=== PATIENT | male | born 1985 | race Caucasian/White ===

== ENCOUNTER 2021-03-12 17:23 | Emergency (ER) | payer OTHER ==
[2021-03-12] MEDS ORDERED: Diphtheria,Pertussis(Acell),Tetanus Vaccine 0.5 ML Syringe IM ONE (18:41)
--- NOTE | 2021-03-12 18:47 | EDM.PDOC ---
ED HPI GENERAL MEDICAL PROBLEM - General Chief Complaint: General Stated Complaint: FISH HOOK LEFT HAND Time Seen by Provider: 03/12/21 18:27 Source of Information: Reports: Patient History Limitations: Reports: No Limitations - History of Present Illness INITIAL COMMENTS - FREE TEXT/NARRATIVE: Cristofer is a 36-year-old male presenting to the ED for removal of a fishhook from his left palm. The patient had not use the hook yet and he was getting ready to go fishing with family when the wind blew causing his tackle box to fall and he grabbed at the lure causing it in bed in the palm of his hand. This was a brand-new lure. He is unsure when his last tetanus was but says it was quite a while ago. We will booster his tetanus today. - Related Data Allergies Allergy/AdvReac Type Severity Reaction Status Date / Time No Known Allergies Allergy Verified 03/12/21 17:38 Home Meds: Home Meds NK [No Known Home Meds] 03/12/21 [History] Past Medical History - Infectious Disease History Infectious Disease History: Reports: Chicken Pox - Past Surgical History Musculoskeletal Surgical History: Reports: Other (See Below) Other Musculoskeletal Surgeries/Procedures:: right knee surgery ED ROS GENERAL - Review of Systems Review Of Systems: See Below Musculoskeletal: Reports: Hand Pain (Single hook from a treble hook embedded in the palm of the left hand) ED EXAM, GENERAL - Physical Exam Exam: See Below Exam Limited By: No Limitations General Appearance: Alert, No Apparent Distress Extremities: Normal Range of Motion, Normal Capillary Refill, Other (Single barbed hook from a treble hook that is embedded in the palm of his left hand. Patient has normal range of motion. He has normal sensation and capillary refill.) Foreign Body Removal - Pre-Procedure Indication: Hulbert embedded in the palm of the left hand Consent Obtained: Reports: Patient Performing Doctor:: Davey Acuna - Post-Procedure Findings:: Single barbed hook from a treble hook embedded in the palm of the left hand. 2 cc of lidocaine 1% was instilled around the hook and the hook was grasped with a needle wheelchair van driver putting downward pressure to disengage the luda and rotating to retract the hook through the hole. Direct pressure was applied at the wound for several minutes and then the wound was sealed with Dermabond. Patient tolerated the procedure well. Complications:: No Course - Vital Signs Last Recorded V/S: Last Vital Signs Temp 35.9 C L 03/12/21 17:36 Pulse 83 03/12/21 17:36 Resp 16 03/12/21 17:36 BP 108/74 03/12/21 17:36 Pulse Ox 99 03/12/21 17:36 - Orders/Labs/Meds Orders: Active Orders 24 hr Category Date Time Status Vaccines to be Administered [RC] PER UNIT ROUTINE Care 03/12/21 18:41 Ordered Diphth,Pertuss(Acell),Tet Vac [Boostrix] Med 03/12/21 18:41 Once 0.5 ml IM .ONCE ONE Medication Orders Diphtheria/Tetanus/Acell Pertussis (Diphtheria,Pertussis(Acell),Tetanus Vaccine 0.5 Ml Syringe) 0.5 ml IM .ONCE ONE Stop: 03/12/21 18:42 Meds: Medications Generic Name Dose Route Start Last Admin Trade Name Freq PRN Reason Stop Dose Admin Diphtheria/Tetanus/Acell Pertussis 0.5 ml 03/12/21 18:41 Diphtheria,Pertussis(Acell),Tetanus Vaccine 0.5 Ml Syringe IM 03/12/21 18:42 .ONCE ONE Discontinued Medications Generic Name Dose Route Start Last Admin Trade Name Freq PRN Reason Stop Dose Admin Lidocaine HCl 5 ml 03/12/21 18:27 03/12/21 18:32 Lidocaine 1% 5 Ml Sdv INJECT 03/12/21 18:28 5 ml ONETIME ONE Administration - Re-Assessments/Exams Free Text/Narrative Re-Assessment/Exam: 03/12/21 18:45 has been bolstered. Patient is suitable for discharge home in satisfactory condition. Indications return to the ED were discussed. As this was a brand-new hook, antibiotics are not required. Departure - Departure Time of Disposition: 18:46 Disposition: Home, Self-Care 01 Clinical Impression: Foreign body in hand Qualifiers: Encounter type: initial encounter Laterality: left Qualified Code(s): S60.552A - Superficial foreign body of left hand, initial encounter - Discharge Information Instructions: Hand or Foot Foreign Body, Adult Referrals: PCP,None [Primary Care Provider] - Care Plan Goals: Activity as tolerated. You may get the wound wet but do not pick at the Dermabond. Watch for any signs of infection including redness, increased temperature, increased pain or any purulent discharge. If any of these occur please let us know right away so we can start you on antibiotics. Sepsis Event Note (ED) - Evaluation Sepsis Screening Result: No Definite Risk - Focused Exam Vital Signs: Vital Signs Temp Pulse Resp BP Pulse Ox 03/12/21 17:36 35.9 C L 83 16 108/74 99 - Problem List & Annotations (1) Foreign body in hand SNOMED Code(s): 060100609 Code(s): S60.559A - SUPERFICIAL FOREIGN BODY OF UNSPECIFIED HAND, INIT ENCNTR Status: Acute Priority: Low Current Visit: Yes Qualifiers: Encounter type: initial encounter Laterality: left Qualified Code(s): S60.552A - Superficial foreign body of left hand, initial encounter - Problem List Review Problem List Initiated/Reviewed/Updated: Yes - My Orders Last 24 Hours: My Active Orders 03/12/21 18:41 Vaccines to be Administered [RC] PER UNIT ROUTINE Diphth,Pertuss(Acell),Tet Vac [Boostrix] 0.5 ml IM .ONCE ONE - Assessment/Plan Last 24 Hours: My Active Orders 03/12/21 18:41 Vaccines to be Administered [RC] PER UNIT ROUTINE Diphth,Pertuss(Acell),Tet Vac [Boostrix] 0.5 ml IM .ONCE ONE
== END 2021-03-12 18:50 | disposition home or self-care (01) ==
LOC: JP.ED 17:23
DX: S60.552A Superficial foreign body of left hand, initial encounter (principal); Z23 Encounter for immunization; W45.8XXA Other foreign body or object entering through skin, initial encounter
CPT/HCPCS: 90471; 90715; 99283